=== PATIENT | female | born 1980 | race Caucasian/White ===

== ENCOUNTER 2022-10-29 08:44 | Emergency (ER) | payer OTHER, SELFPAY ==
[2022-10-29] VITALS (11 sets, daily range): BP systolic 125; BP diastolic 74; PULSE 68–78; RESP 14–22; TEMP 36.4; O2SAT 96–100; BMI 31.1
--- NOTE | 2022-10-29 08:58 | XR_ITS ---
The [address] [address] Patient Name: EARLENE HERNANDEZ MRN: [id number] date: 1980 Sex: F Assigned Patient Location: ER Current Patient Location: ER Accession/Order Number: [id number] Exam Date: 10/29/2022 09:26 Report Date: 10/29/2022 09:52 At the request of: LATRICE MARSHALL Procedure: XR chest 1V EXAM: XR chest 1V INDICATION: pleurisy. COMPARISON: None. TECHNIQUE: Single frontal view of the chest FINDINGS: Normal cardiomediastinal contours. No acute infiltrative process. No pleural effusion or pneumothorax. No acute osseous abnormality. XR/XR chest 1V IMPRESSION: No acute cardiopulmonary process. Electronically authenticated by: CRUZITO CHOUDHARY Date: 10/29/2022 09:52
--- NOTE | 2022-10-29 08:58 | ECG_ITS ---
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
--- NOTE | 2022-10-29 09:12 | ED_ITS ---
HPI - General Adult General Chief complaint: Chest Pain Stated complaint: BACK PAIN Time Seen by Provider: 10/29/22 08:53 Source: patient Mode of arrival: walk-in Limitations: no limitations History of Present Illness HPI narrative: patient woke yesterday morning with pain in the left back just inside of the shoulder blade - no known injury or change in activity to account for the pain. She tried taking ibuprofen but the pain persisted. She still had the pain this morning so she came in for evaluation. She said that the pain is worse with deep breaths and movement of the torso and left shoulder - no pain in the chest or shortness of breath. No history of CAD or DVT/PE. No fever, chills or cough Related Data Previous Rx's Medication Instructions Recorded ketorolac 10 mg tablet 10 mg PO Q8H PRN pain #14 tabs 10/29/22 Allergies Allergy/AdvReac Type Severity Reaction Status Date / Time bupropion [From Wellbutrin] AdvReac Intermediate Verified 10/29/22 08:48 keflex AdvReac Intermediate Uncoded 10/29/22 08:48 PFSH PFSH Social History Smoking status: Current every day smoker Exam Narrative Exam Narrative: Nurses notes and vital signs reviewed and patient is not hypoxic. afebrile General: Well-appearing and in no apparent distress. Skin: Warm, dry, no pallor noted. No rash to the area of concern. Head: Normocephalic, atraumatic. Neck: Supple, non-tender. No lymphadenopathy Eye: Pupils are equal, round and EOMI. No scleral icterus. Cardiovascular: Regular Rate and Rhythm without murmur, gallop or rub. Respiratory: No accessory muscle use or respiratory distress. Lungs are clear to auscultation, no wheezing, rales or rhonchi Back: No midline thoracic or lumbar vertebral tenderness. No left scapular tenderness - pain is medial to the left scapula but there is only minimal soft tissue tenderness there. Musculoskeletal: Left shoulder with normal ROM and no soft tissue or bony tenderness. No calf or popliteal tenderness, no lower extremity edema/swelling. Neurological: A&O x4. No cranial nerve dysfunction observed. No truncal ataxia. Moves all extremities. Sensation intact. Psychiatric: Cooperative and interactive. Normal mood and affect. Constitutional Vital Signs, click to edit/add: Last Vital Signs Temp 97.6 F 10/29/22 08:48 Pulse 72 10/29/22 08:48 Resp 18 10/29/22 08:48 BP 125/74 10/29/22 08:48 Pulse Ox 98 10/29/22 08:48 O2 Del Method Room Air 10/29/22 08:48 Course Vital Signs Vital signs: Vital Signs Temperature 97.6 F 10/29/22 08:48 Pulse Rate 72 10/29/22 08:48 Respiratory Rate 18 10/29/22 08:48 Blood Pressure 125/74 10/29/22 08:48 Pulse Oximetry 98 10/29/22 08:48 Oxygen Delivery Method Room Air 10/29/22 08:48 Temperature 97.6 F 10/29/22 08:48 Pulse Rate 72 10/29/22 08:48 Respiratory Rate 18 10/29/22 08:48 Blood Pressure 125/74 10/29/22 08:48 Pulse Oximetry 98 10/29/22 08:48 Oxygen Delivery Method Room Air 10/29/22 08:48 Medical Decision Making MDM Narrative Medical decision making narrative: EKG was unremarkable. D-dimer was negative, ruling out likelihood of PE. Chest x-ray was unremarkable and other blood tests were negative. She was given IV Toradol while in the emergency department and felt better after ED treatment. Discharged home with prescription for oral Toradol. PCP follow up recommended. ED return if she worsens. Lab Data Lab results reviewed: Yes I reviewed the patient's lab results Labs: Lab Results 10/29/22 Range/Units 09:15 WBC 9.8 (4.0-11.0) 10^3/uL RBC 4.24 (4.20-5.40) 10^6/uL Hgb 12.3 (12.0-16.0) g/dL Hct 37.5 (36.0-48.0) % MCV 88.4 (81.0-99.0) fL MCH 29.0 (26.7-34.0) pg MCHC 32.8 (29.9-35.2) g/dL RDW 14.2 (11.0-15.0) % Plt Count 230 (150-450) 10^3/uL MPV 9.6 (9.5-13.5) fL Neut % (Auto) 71.2 (43.0-75.0) % Lymph % (Auto) 18.1 L (20.5-60.0) % [place] % (Auto) 8.2 (1.7-12.0) % Eos % (Auto) 2.1 (0.9-7.0) % Baso % (Auto) 0.1 L (0.2-2.0) % Neut # (Auto) 7.0 H (1.4-6.5) 10^3/uL Lymph # (Auto) 1.8 (1.2-3.8) 10^3/uL [place] # (Auto) 0.8 (0.3-0.8) 10^3/uL Eos # (Auto) 0.2 (0.0-0.7) 10^3/uL Baso # (Auto) 0.0 (0.0-0.1) 10^3/uL Abs Immat Gran (auto) 0.03 (0.00-0.03) 10^3/uL Imm/Tot Granulo (auto) 0.3 (0.0-0.5) % D-Dimer 0.40 (<=0.59) mg/L FEU Sodium 137 (136-145) mmol/L Potassium 4.4 (3.5-5.1) mmol/L Chloride 103 (98-107) mmol/L Carbon Dioxide 28.8 (21.0-32.0) mmol/L Anion Gap 9.6 BUN 9.0 (7.0-18.0) mg/dL Creatinine 0.54 L (0.55-1.02) mg/dL Est GFR ( Amer) >60 (>=60) Est GFR (Non-Af Amer) >60 (>=60) BUN/Creatinine Ratio 16.7 Glucose 85 (74-106) mg/dL Calcium 8.7 (8.5-10.1) mg/dL Imaging Data Chest x-ray: Radiologist's impression: Patient Name: EARLENE HERNANDEZ MRN: [id number] date: 1980 Sex: F Assigned Patient Location: ER Current Patient Location: ER Accession/Order Number: [id number] Exam Date: 10/29/2022 09:26 Report Date: 10/29/2022 09:52 At the request of: LATRICE MARSHALL Procedure: XR chest 1V EXAM: XR chest 1V INDICATION: pleurisy. COMPARISON: None. TECHNIQUE: Single frontal view of the chest FINDINGS: Normal cardiomediastinal contours. No acute infiltrative process. No pleural effusion or pneumothorax. No acute osseous abnormality. IMPRESSION: No acute cardiopulmonary process. Electronically authenticated by: CRUZITO CHOUDHARY Date: 10/29/2022 09:52 ECG Data Attestation: I personally reviewed and interpreted this ECG as follows: Interpretation: EKG interpretation: Emergency Department physician interpretation. Normal sinus rhythm at 62bpm. moderate right axis, normal intervals and no ST segment elevation or depression. Discharge Plan Discharge Chief Complaint: Chest Pain Clinical Impression: Pleurisy Patient Disposition: Home, Self-Care Time of Disposition Decision: 10:17 Prescriptions / Home Meds: New ketorolac 10 mg tablet 10 mg PO Q8H PRN (Reason: pain) Qty: 14 0RF Instructions: Pleurisy (ED) Stand Alone Forms: Portal Instructions Referrals: Physician,Non-Staff, MD [Primary Care Provider] - 1 week
[2022-10-29] MEDS: KETOROLAC TROMETHAMINE 30 MG/ML VIAL IVP (09:15)
[2022-10-29 09:20] LABS: Basophils Percent Auto 0.1 % (0.2-2.0); Eosinophils Absolute Auto 0.2 10^3/uL (0.0-0.7); Eosinophils Percent Auto 2.1 % (0.9-7.0); Hematocrit 37.5 % (36.0-48.0); Hemoglobin 12.3 g/dL (12.0-16.0); Immature Granulocytes Abs Auto 0.03 10^3/uL (0.00-0.03); Immature Granulocytes Pct Auto 0.3 % (0.0-0.5); Lymphocytes Absolute Auto 1.8 10^3/uL (1.2-3.8); Lymphocytes Percent Auto 18.1 % (20.5-60.0); Mean Corpuscular HGB Conc 32.8 g/dL (29.9-35.2); Mean Corpuscular Volume 88.4 fL (81.0-99.0); Mean Platelet Volume 9.6 fL (9.5-13.5); Monocytes Absolute Auto 0.8 10^3/uL (0.3-0.8); Monocytes Percent Auto 8.2 % (1.7-12.0); Neutrophils Percent Auto 71.2 % (43.0-75.0); Platelet Count 230 10^3/uL (150-450); Red Blood Count 4.24 10^6/uL (4.20-5.40); Red Cell Distribution Width 14.2 % (11.0-15.0); White Blood Count 9.8 10^3/uL (4.0-11.0)
[2022-10-29 09:35] LABS: Anion Gap 9.6; BUN Creatinine Ratio 16.7; Calcium 8.7 mg/dL (8.5-10.1); Carbon Dioxide 28.8 mmol/L (21.0-32.0); Chloride 103 mmol/L (98-107); Estimated GFR (African America >60 (>=60); Estimated GFR (Non-African Ame >60 (>=60); Glucose 85 mg/dL (74-106); Potassium 4.4 mmol/L (3.5-5.1); Sodium 137 mmol/L (136-145)
== END 2022-10-29 10:26 | disposition home or self-care (01) ==
PROVIDERS: Emergency Provider Emergency Medicine
DX: R09.1 Pleurisy (principal); F17.210 Nicotine dependence, cigarettes, uncomplicated
CPT/HCPCS: 36415; 71045; 80048; 85025; 85378; 93005; 96374; 99285

== ENCOUNTER 2022-11-26 13:15 | Emergency (ER) | payer OTHER, SELFPAY ==
[2022-11-26 13:21] VITALS: BP 126/85; PULSE 86; RESP 18; TEMP 37.2; O2SAT 994; BMI 34.5
--- NOTE | 2022-11-26 14:04 | ED.GENADUL1 ---
HPI - General Adult General Chief complaint: Neck Pain/Injury Stated complaint: CAN'T MOVE HEAD/L SIDE NECK PAIN/ABCESS ON REAR Time Seen by Provider: 11/26/22 13:34 Source: patient Mode of arrival: walk-in History of Present Illness HPI narrative: Patient has two complaints - 1) left sided neck pain - she woke this morning with pain along the left neck that is worse when trying to turn her head to the left. Pain goes from the left base of the scalp down the left posterolateral neck and into the superior left trapezius. 2) she has a tender and swollen area to the medial right buttock that started 3 days ago but has worsened since onset. It started draining bloody and purulent material this morning. She is asking about an antibiotic. No systemic symptoms such as fever or vomiting. No recent injury to the head or neck. No meds taken today or yesterday for pain. Related Data Previous Rx's Medication Instructions Recorded doxycycline hyclate 100 mg capsule 100 mg PO BID 7 days #14 caps 11/26/22 methocarbamol 750 mg tablet 750 mg PO Q6H PRN neck pain #30 11/26/22 tabs nabumetone 750 mg tablet 750 mg PO BID PRN pain #20 tabs 11/26/22 Allergies Allergy/AdvReac Type Severity Reaction Status Date / Time bupropion [From Wellbutrin] AdvReac Intermediate Verified 10/29/22 08:48 keflex AdvReac Intermediate Uncoded 10/29/22 08:48 PFSH PFSH Social History Smoking status: Current some day smoker Exam Narrative Exam Narrative: Nurses notes and vital signs reviewed and patient is not hypoxic. afebrile General: Well-appearing and in no apparent distress. Skin: Warm, dry, no pallor noted. Head: Normocephalic, atraumatic. Neck: Supple, no meningismus or cervical lymphadenopathy. Soft tissue tenderness left posterolateral neck. Pain worse with left rotation and side bending. Eye: Pupils are equal, round and EOMI. No scleral icterus. Cardiovascular: normal peripheral perfusion. Respiratory: No accessory muscle use or respiratory distress. Back: No midline thoracic or lumbar vertebral tenderness. Buttock: proctored exam with nurse Gilbert Bonilla present. Patient has a 2cm round area of induration to the medial right buttock about 4cm away from the anus. There is drainage of bloody material with a very small amount fo purulence - I obtained a culture. Neurological: A&O x4. No cranial nerve dysfunction observed. No truncal ataxia. Moves all extremities. Sensation intact. Psychiatric: Cooperative and interactive. Normal mood and affect. Constitutional Vital Signs, click to edit/add: Last Vital Signs Temp 98.9 F 11/26/22 13:21 Pulse 86 11/26/22 13:21 Resp 18 11/26/22 13:21 BP 126/85 11/26/22 13:21 Pulse Ox 994 H 11/26/22 13:21 O2 Del Method Room Air 11/26/22 13:21 Course Vital Signs Vital signs: Vital Signs Temperature 98.9 F 11/26/22 13:21 Pulse Rate 86 11/26/22 13:21 Respiratory Rate 18 11/26/22 13:21 Blood Pressure 126/85 11/26/22 13:21 Pulse Oximetry 994 H 11/26/22 13:21 Oxygen Delivery Method Room Air 11/26/22 13:21 Temperature 98.9 F 11/26/22 13:21 Pulse Rate 86 11/26/22 13:21 Respiratory Rate 18 11/26/22 13:21 Blood Pressure 126/85 11/26/22 13:21 Pulse Oximetry 994 H 11/26/22 13:21 Oxygen Delivery Method Room Air 11/26/22 13:21 Medical Decision Making MDM Narrative Medical decision making narrative: Patient has torticollis and will be treated in the ED with IM Solumedrol and IM Toradol. She will receive prescriptions for relafen and robaxin. She also has a draining cutaneous abscess of the medial right buttock. Culture obtained. She is allergic to Keflex - will prescribed Doxycycline. We will call her if the culture shows resistance. PCP follow up recommended or ED return if she worsens. She was referred to the general surgeon patient registration manager, Dr Constantino, regarding the buttock infection. Discharge Plan Discharge Chief Complaint: Neck Pain/Injury Clinical Impression: Cutaneous abscess, Torticollis Patient Disposition: Home, Self-Care Time of Disposition Decision: 14:12 Prescriptions / Home Meds: New nabumetone 750 mg tablet 750 mg PO BID PRN (Reason: pain) Qty: 20 0RF methocarbamol 750 mg tablet 750 mg PO Q6H PRN (Reason: neck pain) Qty: 30 0RF doxycycline hyclate 100 mg capsule 100 mg PO BID 7 Days Qty: 14 0RF Instructions: Spasmodic Torticollis (ED), Abscess (ED) Stand Alone Forms: Portal Instructions Referrals: Physician,Non-Staff, MD [Primary Care Provider] - 1 week Martin Constantino MD [Physician] - As soon as possible
[2022-11-26] MEDS: KETOROLAC TROMETHAMINE 60 MG/2 ML VIAL IM (14:17)
[2022-11-26] MEDS: METHYLPREDNISOLONE SOD SUCC PF 125 MG/2 ML VIAL IM (14:17)
== END 2022-11-26 14:31 | disposition home or self-care (01) ==
PROVIDERS: Emergency Provider Emergency Medicine
DX: M43.6 Torticollis (principal); L02.31 Cutaneous abscess of buttock; F17.210 Nicotine dependence, cigarettes, uncomplicated
CPT/HCPCS: 87070; 87150; 87186; 96372; 99284; J2930

== ENCOUNTER 2022-11-28 19:28 | Emergency (ER) | payer OTHER, SELFPAY ==
[2022-11-28 19:33] VITALS: BP 159/98; PULSE 77; RESP 18; TEMP 36.6; O2SAT 98; BMI 43.9
--- NOTE | 2022-11-28 19:39 | PC.NURSE ---
patient states she was recently seen in this ER for neck spasms and was prescribed muscle relaxers. states since she has been taking them she has developed a headache and has been sleeping more than normal but states her neck still feels stiff. patient has not followed up with primary care physician yet. patient also currently taking an antibiotic for abscess on buttock.
--- NOTE | 2022-11-28 19:41 | ED.GENADUL1 ---
HPI - General Adult General Chief complaint: Headache Stated complaint: Migraine Time Seen by Provider: 11/28/22 19:37 Source: patient Mode of arrival: walk-in History of Present Illness HPI narrative: patient recently seen for Torticollis and prescribed NSAID and norflex. States she now has a migraine that started yesterday. States she has not had migraines in a few years but this is her migraine and it is all over her head as usual. No fever, nausea or photosensitivity . No weakness or paresthesia of her extremities. Her neck pain needing to turn her body to turn her head to the left has not changed Onset (ago): day(s) Location: Reports head Related Data Previous Rx's Medication Instructions Recorded doxycycline hyclate 100 mg capsule 100 mg PO BID 7 days #14 caps 11/26/22 methocarbamol 750 mg tablet 750 mg PO Q6H PRN neck pain #30 11/26/22 tabs nabumetone 750 mg tablet 750 mg PO BID PRN pain #20 tabs 11/26/22 Allergies Allergy/AdvReac Type Severity Reaction Status Date / Time bupropion [From Wellbutrin] AdvReac Intermediate Verified 10/29/22 08:48 keflex AdvReac Intermediate Uncoded 10/29/22 08:48 Review of Systems ROS Narrative currently on Doxycycline for buttocks abscess and states it is draining and improving Status of ROS 10 or more systems reviewed and unremarkable except as noted in history and below PFSH PFS Social History Smoking status: Current some day smoker Exam Constitutional Vital Signs, click to edit/add: Last Vital Signs Temp 97.8 F 11/28/22 19:33 Pulse 77 11/28/22 19:33 Resp 18 11/28/22 19:33 BP 159/98 H 11/28/22 19:33 Pulse Ox 98 11/28/22 19:33 O2 Del Method Room Air 11/28/22 19:33 Common normals: no apparent distress, oriented x3, healthy appearing, alert and well nourished Eye Common normals: PERRL, EOMs intact bilaterally and conjunctivae normal Respiratory Common normals: normal respiratory effort, no retractions and no use of accessory muscles Cardio Common normals: regular rate, regular rhythm, S1 normal heart sound and S2 normal heart sound GI Common normals: Normal to inspection, nondistended, normoactive bowel sounds present, soft to palpation and non-tender Extremity Common normals: normal to inspection and full ROM Neuro Common normals: oriented x3, CN's II-XII intact bilaterally, moves all extremities, no focal motor deficits and no sensory deficits noted Psych Appearance: grossly normal Course Vital Signs Vital signs: Vital Signs Temperature 97.8 F 11/28/22 19:33 Pulse Rate 77 11/28/22 19:33 Respiratory Rate 18 11/28/22 19:33 Blood Pressure 159/98 H 11/28/22 19:33 Pulse Oximetry 98 11/28/22 19:33 Oxygen Delivery Method Room Air 11/28/22 19:33 Temperature 97.8 F 11/28/22 19:33 Pulse Rate 77 11/28/22 19:33 Respiratory Rate 18 11/28/22 19:33 Blood Pressure 159/98 H 11/28/22 19:33 Pulse Oximetry 98 11/28/22 19:33 Oxygen Delivery Method Room Air 11/28/22 19:33 Medical Decision Making MDM Narrative Medical decision making narrative: patient was seen a couple of days ago for torticollis with limited ability to turn her head to the left . Has to turn her whole body. Now presents with a migraine which she feels was triggered by one of the medications she was prescribed for her neck pain. Migraine treated in the department and patient is now feeling better and resting. Advised to d/c both recent medications. Will prescribe Baclofen to use for her neck and she is to follow up with her doctor for a recheck Lab Data Labs: Lab Results 11/28/22 Range/Units 19:54 WBC 7.7 (4.0-11.0) 10^3/uL RBC 4.05 L (4.20-5.40) 10^6/uL Hgb 12.0 (12.0-16.0) g/dL Hct 36.6 (36.0-48.0) % MCV 90.4 (81.0-99.0) fL MCH 29.6 (26.7-34.0) pg MCHC 32.8 (29.9-35.2) g/dL RDW 13.9 (11.0-15.0) % Plt Count 252 (150-450) 10^3/uL MPV 10.3 (9.5-13.5) fL Neut % (Auto) 61.9 (43.0-75.0) % Lymph % (Auto) 29.9 (20.5-60.0) % [place] % (Auto) 6.2 (1.7-12.0) % Eos % (Auto) 1.4 (0.9-7.0) % Baso % (Auto) 0.3 (0.2-2.0) % Neut # (Auto) 4.8 (1.4-6.5) 10^3/uL Lymph # (Auto) 2.3 (1.2-3.8) 10^3/uL [place] # (Auto) 0.5 (0.3-0.8) 10^3/uL Eos # (Auto) 0.1 (0.0-0.7) 10^3/uL Baso # (Auto) 0.0 (0.0-0.1) 10^3/uL Abs Immat Gran (auto) 0.02 (0.00-0.03) 10^3/uL Imm/Tot Granulo (auto) 0.3 (0.0-0.5) % Sodium 142 (136-145) mmol/L Potassium 3.4 L (3.5-5.1) mmol/L Chloride 105 (98-107) mmol/L Carbon Dioxide 27.6 (21.0-32.0) mmol/L Anion Gap 12.8 BUN 15.0 (7.0-18.0) mg/dL Creatinine 0.84 (0.55-1.02) mg/dL Est GFR ( Amer) >60 (>=60) Est GFR (Non-Af Amer) >60 (>=60) BUN/Creatinine Ratio 17.9 Glucose 103 (74-106) mg/dL Calcium 8.3 L (8.5-10.1) mg/dL Discharge Plan Discharge Chief Complaint: Headache Clinical Impression: Migraine, Torticollis Patient Disposition: Home, Self-Care Prescriptions / Home Meds: No Action nabumetone 750 mg tablet 750 mg PO BID PRN (Reason: pain) Qty: 20 0RF methocarbamol 750 mg tablet 750 mg PO Q6H PRN (Reason: neck pain) Qty: 30 0RF doxycycline hyclate 100 mg capsule 100 mg PO BID 7 Days Qty: 14 0RF Instructions: Migraine Headache (ED) Additional Instructions: discontinue both of your recent medications as discussed. Follow up with your doctor in a couple of days for recheck Stand Alone Forms: Portal Instructions Referrals: Physician,Non-Staff, MD [Primary Care Provider] - 1 week
[2022-11-28] MEDS: METHYLPREDNISOLONE SOD SUCC PF 125 MG/2 ML VIAL IVP (20:02)
[2022-11-28] MEDS: MAGNESIUM SULFATE IN WATER 2 GM/50 ML PREMIX IV (20:03)
[2022-11-28] MEDS: LORAZEPAM 2 MG/ML 1 ML VIAL 1 MG IV (20:03)
[2022-11-28 20:31] LABS: Basophils Percent Auto 0.3 % (0.2-2.0); Eosinophils Absolute Auto 0.1 10^3/uL (0.0-0.7); Eosinophils Percent Auto 1.4 % (0.9-7.0); Hematocrit 36.6 % (36.0-48.0); Immature Granulocytes Abs Auto 0.02 10^3/uL (0.00-0.03); Immature Granulocytes Pct Auto 0.3 % (0.0-0.5); Lymphocytes Absolute Auto 2.3 10^3/uL (1.2-3.8); Lymphocytes Percent Auto 29.9 % (20.5-60.0); Mean Corpuscular HGB Conc 32.8 g/dL (29.9-35.2); Mean Corpuscular Hemoglobin 29.6 pg (26.7-34.0); Mean Corpuscular Volume 90.4 fL (81.0-99.0); Mean Platelet Volume 10.3 fL (9.5-13.5); Monocytes Absolute Auto 0.5 10^3/uL (0.3-0.8); Monocytes Percent Auto 6.2 % (1.7-12.0); Neutrophils Absolute Auto 4.8 10^3/uL (1.4-6.5); Neutrophils Percent Auto 61.9 % (43.0-75.0); Platelet Count 252 10^3/uL (150-450); Red Blood Count 4.05 10^6/uL (4.20-5.40); Red Cell Distribution Width 13.9 % (11.0-15.0); White Blood Count 7.7 10^3/uL (4.0-11.0)
[2022-11-28 20:38] LABS: Anion Gap 12.8; BUN Creatinine Ratio 17.9; Calcium 8.3 mg/dL (8.5-10.1); Carbon Dioxide 27.6 mmol/L (21.0-32.0); Chloride 105 mmol/L (98-107); Estimated GFR (African America >60 (>=60); Estimated GFR (Non-African Ame >60 (>=60); Glucose 103 mg/dL (74-106); Potassium 3.4 mmol/L (3.5-5.1); Sodium 142 mmol/L (136-145)
[2022-11-28 21:03] VITALS: BP 134/69; PULSE 78; RESP 16; O2SAT 99
== END 2022-11-28 21:04 | disposition home or self-care (01) ==
PROVIDERS: Emergency Provider Internal Medicine
DX: G43.909 Migraine, unspecified, not intractable, without status migrainosus (principal); M43.6 Torticollis; F17.210 Nicotine dependence, cigarettes, uncomplicated
CPT/HCPCS: 36415; 80048; 85025; 96365; 96375; 99284; J2930